=== PATIENT | male | born 1985 | race African-American/Black ===

== ENCOUNTER 2020-06-06 01:04 | Emergency (ER) | payer OTHER ==
[~2020-06-06] VITALS: Ht 188 cm; Wt 159.3 kg
[2020-06-06 01:05] VITALS: BP 172/98
[2020-06-06] MEDS ORDERED: NORCO 5/325MG TABLET (BULK FOR ED) PO ONE (01:30)
[2020-06-06] MEDS ORDERED: AUGMENTIN 875 MG TAB PO ONE (01:30)
[2020-06-06] MEDS ORDERED: NAPROXEN 250 MG TAB PO ONE (01:30)
[2020-06-06] MEDS ORDERED: MAGICMW SSP (01:41)
[2020-06-06] MEDS ORDERED: AUGM875T28 PO (01:41)
[2020-06-06] MEDS ORDERED: HYDR-3715 PO (01:41)
[2020-06-06] MEDS ORDERED: NAPR-837 PO (01:41)
== END 2020-06-06 01:55 | disposition home or self-care (01) ==
LOC: M ED 01:04
DX: K08.89 Other specified disorders of teeth and supporting structures (principal)

== ENCOUNTER 2020-12-04 16:58 | Emergency (ER) | payer OTHER ==
[~2020-12-04] VITALS: Ht 188 cm; Wt 156.2 kg
[~2020-12-04 16:58] MED LIST: AUGM875T28 PO; HYDR-3715 PO; MAGICMW SSP; NAPR-837 PO
[2020-12-04] MEDS ORDERED: KETOROLAC 30 MG/ML 1ML VIAL IV ONE (17:30)
[2020-12-04] MEDS ORDERED: ONDANSETRON 4MG/2ML VIAL IV ONE (17:30)
[2020-12-04] MEDS ORDERED: NS 1,000 ML IV SCH (17:30)
[2020-12-04 18:12] LABS: BASO % 0.4 % (0.0-1.0); EOS # 0.1 10^3/uL (0.0-0.5); EOS % 1.6 % (0.0-3.0); HEMATOCRIT 45.8 % (42.0-52.0); HEMOGLOBIN 14.7 g/dl (13.5-17.5); LYMPH # 2.5 10^3/uL (1.5-5.0); LYMPH % 32.8 % (24.0-44.0); MEAN CORPUSCULAR HEMOGLOBIN 27.7 pg (27.0-33.0); MEAN CORPUSCULAR HGB CONC 32.1 g/dl (32.0-36.5); MEAN CORPUSCULAR VOLUME 86.3 fl (80.0-96.0); MONO # 0.6 10^3/uL (0.0-0.8); MONO % 8.4 % (2.0-8.0); NEUTROPHILS # 4.3 10^3/uL (1.5-8.5); NEUTROPHILS % 56.5 % (36.0-66.0); PLATELET COUNT, AUTOMATED 173 10^3/uL (150-450); RED BLOOD COUNT 5.31 10^6/uL (4.30-6.10); WHITE BLOOD COUNT 7.7 10^3/uL (4.0-10.0)
[2020-12-04 18:36] LABS: ALBUMIN 3.7 GM/DL (3.2-5.2); ALT/SGPT 28 U/L (12-78); BILIRUBIN,DIRECT 0.2 MG/DL (0.0-0.2); BILIRUBIN,TOTAL 0.4 MG/DL (0.2-1.0); BLOOD UREA NITROGEN 13 MG/DL (7-18); CALCIUM LEVEL 8.7 MG/DL (8.5-10.1); CARBON DIOXIDE LEVEL 31 MEQ/L (21-32); CHLORIDE LEVEL 104 MEQ/L (98-107); CREATININE FOR GFR 1.06 MG/DL (0.70-1.30); GLOMERULAR FILTRATION RATE > 60.0 (>60); GLUCOSE, FASTING 90 MG/DL (70-100); LIPASE 73 U/L (73-393); POTASSIUM SERUM 3.7 MEQ/L (3.5-5.1); SODIUM LEVEL 138 MEQ/L (136-145); TOTAL PROTEIN 7.6 GM/DL (6.4-8.2)
--- NOTE | 2020-12-04 18:52 | REPVR ---
PROCEDURE INFORMATION: Exam: CT Abdomen And Pelvis Without Contrast Exam date and time: 12/04/2020 5:35 PM Age: 35 years old Clinical indication: Abdominal pain; Flank; Left; Additional info: L flank/low back pain TECHNIQUE: Imaging protocol: Computed tomography of the abdomen and pelvis without contrast. Radiation optimization: All CT scans at this facility use at least one of these dose optimization techniques: automated exposure control; mA and/or kV adjustment per patient size (includes targeted exams where dose is matched to clinical indication); or iterative reconstruction. COMPARISON: No relevant prior studies available. FINDINGS: Liver: Normal. No mass. Gallbladder and bile ducts: Normal. No calcified stones. No ductal dilation. Pancreas: Normal. No ductal dilation. Spleen: Normal. No splenomegaly. Adrenal glands: Normal. No mass. Kidneys and ureters: No renal or ureteral calculi. No hydronephrosis. Stomach and bowel: Unremarkable. No obstruction. No mucosal thickening. Appendix: A normal appendix is seen. Intraperitoneal space: Unremarkable. No free air. No significant fluid collection. Vasculature: Unremarkable. No abdominal aortic aneurysm. Lymph nodes: Unremarkable. No enlarged lymph nodes. Urinary bladder: Unremarkable as visualized. Reproductive: Unremarkable as visualized. Bones/joints: Unremarkable. No acute fracture. Soft tissues: Unremarkable. IMPRESSION: Negative CT abdomen/pelvis. No renal or ureteral calculi are evident and there is no evidence of obstructive uropathy. Electronically signed by: Kishan Epps On 12/04/2020 18:51:28 PM
[2020-12-04] MEDS ORDERED: PERCOCET 5MG/325MG TAB PO ONE (19:10)
[2020-12-04] MEDS ORDERED: CYCL-707 PO (19:14)
[2020-12-04 19:25] VITALS: BP 170/92
== END 2020-12-04 19:40 | disposition home or self-care (01) ==
LOC: M ED 16:58
DX: M54.50 Low back pain, unspecified (principal)
CPT/HCPCS: 74176; 80048; 80076; 81001; 83690; 85025; 93041; 96361; 96374; 96375; 99284; J1885; J2405

== ENCOUNTER 2023-03-06 04:57 | Emergency (ER) | payer OTHER ==
[~2023-03-06] VITALS: Ht 188 cm; Wt 168.7 kg
[~2023-03-06 04:57] MED LIST changes: +CYCL-707 PO
[2023-03-06 04:59] VITALS: BP 178/98; O2SAT 97
[2023-03-06] MEDS ORDERED: IBUPROFEN 800 MG TAB PO ONE (05:50)
[2023-03-06 07:24] VITALS: TEMP 98.9
[2023-03-06] MEDS ORDERED: ACET325C5 PO (07:44)
[2023-03-06] MEDS ORDERED: IBUP-1022 PO (07:44)
== END 2023-03-06 07:47 | disposition home or self-care (01) ==
LOC: M ED 04:57
DX: J09.X2 Influenza due to identified novel influenza A virus with other respiratory manifestations (principal); F10.10 Alcohol abuse, uncomplicated; Z79.1 Long term (current) use of non-steroidal anti-inflammatories (NSAID)